=== PATIENT | male | born 1985 ===

== ENCOUNTER 2023-10-01 09:27 | Outpatient (AMB) | payer MEDICAID, SELFPAY ==
--- NOTE | 2023-10-01 09:46 | A.OFFVIS_ITS ---
Intake VS Expanded 10/01/23 10:04 Height 5 ft 8 in Weight 238 lb 8.642 oz BMI 36.3 Intake Visit Reasons: Gastroesophageal reflux disease (GERD)/Confirmed HPI Nutrition Presentation Details Pt presents for MNT for GERD Pt reports having had gastric bypass surgery in 2017, wt prior to surgery at 300+ lbs , reached 218 lbs and now maintaining at 230-240lbs Pt complains of feeling tired all the time and having energy drinks/coffee Pt also reports feeling symptoms of hypoglycemia, yesterday after 5pm meal : Pt reports having had rice/eggs and orange juice (about 2 hours later reports having checked blood sugar with 's meter and glucose was 40 which he treated by having milk and 30 minutes later was in the 80s Pt reports not taking multivitamin , labs from 03/2023 showed low level of H/H, b12 Pt reports taking cholesysteramine as rx by doctor , 2-3 times a day [id number].Jeor Equation Height 5 ft 8 in Weight 238 lb Resting Metabolic Rate 1966.17 Calculated Activity Level Sedentary Calories Needed to Maintain Weight 2359.40 Diagnosis Nutrition problem #1 food nutri know defi As related to (etiology) #1 diagnosis (GERD, post bypass bariatric surgery in 2017) As evidenced by (sign/symptom) #1 knowledge deficit of diet Learning/Education Readiness to learn good Stages of change preparation Educational materials provided Yes (vitamin suppl, meal planning) Most Recent Diabetes Results: No Data to Display [facility] Surgical History (Updated 10/01/23 @ 10:27 by Senia Maddox, RD, LDN) Status post gastric bypass for obesity Assessment & Plan Assessment & Plan (1) GERD (gastroesophageal reflux disease): Code(s): K21.9 - Gastro-esophageal reflux disease without esophagitis Plan: Wt: 108 kg Est kcal needs as per MSJ: 2359 (40% carb, 30% protein/fat) Est fluid needs as per 25-30 ml/d: 2700 -3240 Est prot per day as per 1 g/kg bw: 108g Recommend fiber intake : 8-10 g per day and gradually increase to 25-28 g per day for women and 35-38 g for men or as tolerated Recommend sodium intake per day : less than 2000 mg Educated patient on: ( R = reviewed V = verbalizes understanding N/R = needs review N/A = not applicable * Food sources of carbohydrate, adequate serving sizes and its role in various health conditions: R * Differences between complex carbohydrates a simple carbohydrates, role of fiber in diet: R * Differences between types of fats and role in diet (mono on saturated fat fatty acids, saturated fatty acids, trans fats): R * Food sources of sodium in salt and healthy modifications for heart health in kidney health: R * Vitamins and minerals: R V - Pt to resume taking daily multivitamin * Healthy plate method concept: R V * Physical activity: Benefits a precaution: NR * Hypoglycemia protocol (rule of 15): R - prevention of hypoglycemia by reducing total carbohydrates and including fiber rich foods discussed Patient Instructions: Resume taking bariatric multivitamin Have 4 small meals per day choosing protein sources of foods along with fiber rich foods Reduce total carbohydrate at meal to less than 60 g following heathy plate method Drink low sugar fluids , 45 minutes before or after solid meals Reduce on caffeine beverages and foods Coding Level of Care Code Nutr Indiv Intake (43669) Diagnoses GERD (gastroesophageal reflux disease) K21.9 Time Spent (min) 30
[2023-10-01 10:04] VITALS: BMI 36.3
[2023-10-01 10:32] VITALS: BMI 36.2
== END 2023-10-01 10:18 | disposition home or self-care (01) ==
PROVIDERS: PCP Physician Assistant; Visit Provider Dietitian, Registered
DX: K21.9 Gastro-esophageal reflux disease without esophagitis (principal)

== ENCOUNTER → 2023-10-01 09:27 | Outpatient (BNVA) | payer MEDICAID, SELFPAY | PROVIDERS: PCP Physician Assistant; Visit Provider Dietitian, Registered | DX: K21.9 Gastro-esophageal reflux disease without esophagitis (principal) | CPT/HCPCS: 97802 ==

== ENCOUNTER 2023-11-27 09:33 | Outpatient (AMB) | payer MEDICAID, SELFPAY ==
[2023-11-27 09:46] VITALS: BMI 37.3
--- NOTE | 2023-11-27 09:46 | A.OFFVIS_ITS ---
Intake VS Expanded 11/27/23 09:46 Height 5 ft 8 in Weight 245 lb 5.992 oz BMI 37.3 Intake Visit Reasons: GERD/CONFIRMED HPI Nutrition Presentation Details Pt presents for MNT follow up for GERD Pt reports doing well prior to holiday celebrations. Most Recent Diabetes Results: No Data to Display [facility] Surgical History (Updated 10/01/23 @ 10:[address], LDN) Status post gastric bypass for obesity Assessment & Plan Assessment & Plan (1) GERD (gastroesophageal reflux disease): Code(s): K21.9 - Gastro-esophageal reflux disease without esophagitis Plan: Wt: 108 kg (09/2023) 111kg (12/2023) Est kcal needs as per MSJ: 2359 (40% carb, 30% protein/fat) Est fluid needs as per 25-30 ml/d: 2700 -3240 Est prot per day as per 1 g/kg bw: 108g Recommend fiber intake : 8-10 g per day and gradually increase to 25-28 g per day for women and 35-38 g for men or as tolerated Recommend sodium intake per day : less than 2000 mg Educated patient on: ( R = reviewed V = verbalizes understanding N/R = needs review N/A = not applicable * Food sources of carbohydrate, adequate serving sizes and its role in various health conditions: R * Differences between complex carbohydrates a simple carbohydrates, role of fiber in diet: R * Differences between types of fats and role in diet (mono on saturated fat fatty acids, saturated fatty acids, trans fats): R * Food sources of sodium in salt and healthy modifications for heart health in kidney health: R * Vitamins and minerals: R V - * Healthy plate method concept: R V * Physical activity: Benefits a precaution: R * Hypoglycemia protocol (rule of 15): R - Patient Instructions: Resume working on meal planning , reduce total carb at meals to 60-75 g (3 meals/day) following healthy plate method Choose lean protein sources of foods Coding Level of Care Code Nutr Indiv Subseq (05855) Diagnoses GERD (gastroesophageal reflux disease) K21.9 Time Spent (min) 30
== END 2023-11-27 10:15 | disposition home or self-care (01) ==
PROVIDERS: PCP Physician Assistant; Visit Provider Dietitian, Registered
DX: K21.9 Gastro-esophageal reflux disease without esophagitis (principal)

== ENCOUNTER → 2023-11-27 09:33 | Outpatient (BNVA) | payer MEDICAID, SELFPAY | PROVIDERS: PCP Physician Assistant; Visit Provider Dietitian, Registered | DX: K21.9 Gastro-esophageal reflux disease without esophagitis (principal) | CPT/HCPCS: 97803 ==